=== PATIENT | male | born 1935 | race Caucasian/White ===

== ENCOUNTER 2016-05-13 21:01 | Observation (INO) | payer OTHER, MEDICARE ==
--- NOTE | 2016-05-13 21:39 | PDOC ---
History of Present Illness - General History Source: Patient Exam Limitations: No Limitations <Randy Cueva - Last Filed: 05/13/16 21:45> - General History Source: Patient Exam Limitations: No Limitations <Rachel Flores I - Last Filed: 05/13/16 23:44> - General Chief Complaint: Chest Pain Stated Complaint: CHEST PAIN Time Seen by Provider: 05/13/16 21:09 - History of Present Illness Initial Comments: 05/13/16 21:45 The patient is a 80 year old male, with a significant past medical history of, HTN, and fib who presents to the emergency department with intermittent chest pain started after dinner today. He describes the pain as a pressure sensation at his mid epigastric area. He reports experiencing this symptoms before and that this is an ongoing consistent problem. He arrives with no active chest pain /pressure. He reports taking Aspirin today with alleviation of his chest pain. He denies any arm or neck pain. He denies any recent injury or trauma. He reports having an Echo stress test about a month. He denies shortness of breath. He denies fever, chills, headache and dizziness. He denies nausea, vomit, abdominal pain, diarrhea and constipation. He denies dysuria, frequency, urgency and hematuria. PAST SURGICAL HISTORY: No significant history. FAMILY HISTORY: No pertinent history. SOCIAL HISTORY: Patient lives with family and is employed. MEDICATIONS: Reviewed. ALLERGIES: As per nursing notes. ROS General: No fevers or chills, no weakness, no weight loss HEENT: No change in vision. No sore throat,. No ear pain CardioVascular: Yes chest pain No shortness of breath Respiratory:No cough, or wheezing. Gastrointestinal: No nausea, vomiting, diarrhea or constipation. No rectal bleeding Genitourinary: No dysuria, hematuria, or frequency Musculoskeletal: No joint or muscle pain or swelling Neurologic: No headache, vertigo, dizziness or loss of consciousness Psychiatric: No depression Skin: No rashes or easy bruising Endocrine: no increased thirst or abnormal weight change Allergic: no skin or latex allergy All other systems reviewed and normal Exam: General: Well-nourished well-developed individual, no acute distress HEENT: Throat: Normal, tonsils normal, no erythema or exudate Neck: Supple, no meningeal signs, no lymphadenopathy Eyes: Pupils equal reactive and round, extraocular motion intact Chest: Nontender to palpation Cardiac: S1-S2 normal, regular rate and rhythm, no murmurs rubs or gallops Respiratory: Lungs clear to auscultation bilateral Abdomen: Soft, nondistended, normal bowel sounds, mild epigastric tenderness. Extremities: Warm, dry, no cyanosis, clubbing, or edema Skin: No rashes Neuro: Alert and oriented x3, nonfocal exam, grossly intact, normal gait Psych: Normal mood and affect (Randy Cueva) 05/13/16 22:38 A portion of this note was documented by scribe services under my direction. I have reviewed the details of the note, within reason, and agree with the documentation. The case summary and management plan written by me. Assessment and plan: This is an 80-year-old male with several cardiac risk factors and the history of known coronary artery disease who comes in complaining of substernal chest pain. Patient's fairly vague as to the nature of the pain and in discussion with the patient it appears that he has been having intermittent now for days if not longer. Patient said he thinks he recently had a cardiac stress echo test but it is unclear as to whether was just a echo or a stress echo. Patient does take an aspirin a day and did take his aspirin today when he had the pain and the pain did resolve with the aspirate. Patient's EKG is not normal at does have some nonspecific changes in comparison with a prior cardiogram there is no significant change. Cardiogram is from June 2014 Patient's heart score is 5 Patient will be admitted to a telemetry bed to rule him out and possibly get a stress test if he has not had one recently. (Rachel Flores I) Past History <Randy Cueva - Last Filed: 05/13/16 21:45> - Past Medical History Anemia: No Asthma: No Cancer: No Cardiac Disorders: Yes (A-FIB) CVA: No COPD: No CHF: No Dementia: No Diabetes: No GI Disorders: Yes (HIATAL HERNIA) Disorders: No HTN: Yes Hypercholesterolemia: No Kidney Stones: Yes Liver Disease: No Seizures: No Thyroid Disease: No - Surgical History Abdominal Surgery: No Appendectomy: No Cardiac Surgery: No Cholecystectomy: No Lung Surgery: No Neurologic Surgery: No Orthopedic Surgery: No - Psycho/Social/Smoking Cessation Hx Anxiety: No Suicidal Ideation: No Smoking History: Former smoker Have you smoked in the past 12 months: No If you are a former smoker, when did you quit?: 1979 Information on smoking cessation initiated: No Hx Alcohol Use: No Drug/Substance Use Hx: No Substance Use Type: None Hx Substance Use Treatment: No <Rachel Flores I - Last Filed: 05/13/16 23:44> - Past Medical History Allergies/Adverse Reactions: Allergies Allergy/AdvReac Type Severity Reaction Status Date / Time shellfish derived Allergy Unknown Verified 05/13/16 21:28 Home Medications: Ambulatory Orders Aspirin [ASA -] 81 mg PO DAILY 10/02/13 Amlodipine Besylate/Benazepril [Lotrel 5-10 mg Capsule] 1 each PO DAILY Sennosides [Senna Lax] 8.6 mg PO DAILY 06/23/14 Cardiac Specific PMH - Complaint Specific PMHX Pacemaker: No <Rachel Flores I - Last Filed: 05/13/16 23:44> - Vital Signs Last Vital Signs Temp Pulse Resp BP Pulse Ox 97.7 F 65 16 144/84 99 05/13/16 21:02 05/13/16 21:02 05/13/16 21:02 05/13/16 21:02 05/13/16 21:02 Heart Score/ECG Review - History History: Slightly suspicious - Electrocardiogram EKG: Non specific repolarization disturbance - Age Age: >/= 65 - Risk Factors Risk Factors Heart Score: Yes Hx Hypercholesterolemia, Yes Hx Hypertension, Yes Hx Obesity Based on the list above the patient has:: >/=3 risk factors or Hx atherosclerotic disease - Troponin Troponin: </= normal limit - Score Heart Score - Total: 5 <Rachel Flores I - Last Filed: 05/13/16 23:44> ED Treatment Course - LABORATORY CBC & Chemistry Diagram: 05/13/16 21:45 05/13/16 21:45 <Rachel Flores I - Last Filed: 05/13/16 23:44> - ADDITIONAL ORDERS Additional order review: Laboratory Results 05/13/16 05/13/16 21:45 21:45 Sodium 134 L Potassium 4.1 Chloride 101 Carbon Dioxide 26 Anion Gap 7 L BUN 14 Creatinine 0.9 Creat Clearance w eGFR > 60 Random Glucose 107 H D Calcium 8.6 Total Bilirubin 0.2 D AST 23 D ALT 21 Alkaline Phosphatase 40 Creatine Kinase 110 Troponin I < 0.03 L Total Protein 6.6 Albumin 4.0 05/13/16 21:45 RBC 4.55 MCV 98.4 H MCHC 32.8 RDW 12.8 MPV 8.9 Neutrophils % 54.3 D Lymphocytes % 30.6 D Monocytes % 12.2 H Eosinophils % 2.4 Basophils % 0.5 - RADIOLOGY Radiology Studies Ordered: Category Date Time Status CHEST X-RAY PORTABLE* [RAD] Stat Radiology 05/13/16 21:50 Completed *DC/Admit/Observation/Transfer <Randy Cueva - Last Filed: 05/13/16 21:45> - Discharge Dispostion Admit: Yes <Rachel Flores I - Last Filed: 05/13/16 23:44> Diagnosis at time of Disposition: Chest pain Qualifiers: Chest pain type: precordial chest pain Qualified Code(s): R07.2 - Precordial pain - Discharge Dispostion Condition at time of disposition: Good Decision to Admit order Date/Time: Decision to Admit Order Category Date Time Status Decision to Admit to Hospital Routine Phy Order 05/13/16 22:41 Ordered - Referrals Referrals: Zoran Viramontes MD [Primary Care Provider] - - Attestations Scribe Attestion: 05/13/16 21:43 Documentation prepared by Randy Cueva, acting as director medical for Rachel Flores MD. (Randy Cueva)
[2016-05-13 21:43] VITALS: BMI 31.3
[2016-05-13 22:13] LABS: BASOPHIL 0.5 % (0-2.0); EOSINOPHIL 2.4 % (0-4.5); MCH 32.3 pg (25.7-33.7); MCHC 32.8 g/dl (32.0-35.9); MEAN CELL VOLUME 98.4 fl (80-96); MEAN PLT VOLUME 8.9 fl (7.5-11.1); NEUTROPHILS 54.3 % (42.8-82.8); PLATELET COUNT 242 K/MM3 (134-434); RDW 12.8 % (11.9-15.9); WHITE BLOOD COUNT 6.8 K/mm3 (4.0-10.0)
[2016-05-13 22:26] LABS: ALK PHOS 40 U/L (32-92); ANION GAP 7 (8-16); CALCIUM 8.6 mg/dl (8.4-10.2); CO2 26 mmol/L (22-28); CREATININE 0.9 mg/dl (0.6-1.3); GLUCOSE,RANDOM 107 mg/dl (74-106); SGOT/AST 23 U/L (10-42); SGPT/ALT 21 U/L (10-40); TOT PROT 6.6 g/dl (6.4-8.3)
[2016-05-13 22:27] LABS: CPK(DFH) 110 IU/L (38-174)
[2016-05-13 22:43] LABS: BILIRUBIN,TOTAL 0.2 mg/dl (0.2-1.0)
[2016-05-13 22:47] LABS: TROPONIN I (DFP) < 0.03 ng/ml (0.03-0.50)
[2016-05-13] MEDS ORDERED: ASPIRIN 81 MG CHEWABLE TABLETS PO ONE (23:40)
[2016-05-13] MEDS ORDERED: ASPIRIN 81 MG CHEWABLE TABLETS ONE (23:48)
--- NOTE | 2016-05-13 23:56 | HP ---
CHIEF COMPLAINT: Chest Pain PCP: Dr. Viramontes HISTORY OF PRESENT ILLNESS: This is a 80 year old man with a past medical history of Hypertension, Paroxysmal Afib (no AC), CAD, BPH. Who presents to the emergency department with burning midsternal chest pain x pm. Patient reports the pain as radiating across his chest. Patient denies SOB, diaphoresis, nausea or vomiting. Patient reports seeing his limb driver regularly, having an Echo last April - . Patient denies SOB, diaphoresis, palpitations. Patient denies fever, chills, cough, N?V/S, constipation, dysuria. Patient denies sick contacts or recent travel. ER course was notable for: (1) Cardiac Enzymes neg x1 (2) EKG-Sinus Rhythm with SA, 1st degree AV block, Inferior Infarct, age undetermined (3) Chest Xray- Recent Travel: None PAST MEDICAL HISTORY: See HPI PAST SURGICAL HISTORY: Hernia Repair Arthroscopic Joint Renal Stent (2012) Social History: Smoking: Former 2PPD x26 yrs , quit 1979 Alcohol: Occasional, wine Drugs: None Family History: Mother age 85, AAA Father age 93, natural cause Allergies shellfish derived Allergy (Unknown, Verified 05/13/16 21:28) HOME MEDICATIONS: Medication Instructions Recorded Aspirin [ASA -] 81 mg PO DAILY 10/02/13 Amlodipine Besylate/Benazepril 1 each PO DAILY 06/23/14 [Lotrel 5-10 mg Capsule] Sennosides [Senna Lax] 8.6 mg PO DAILY 06/23/14 REVIEW OF SYSTEMS CONSTITUTIONAL: Absent: fever, chills, diaphoresis, generalized weakness, malaise, loss of appetite, weight change HEENT: Absent: rhinorrhea, nasal congestion, throat pain, throat swelling, difficulty swallowing, mouth swelling, ear pain, eye pain, visual changes CARDIOVASCULAR: chest pain Absent: syncope, palpitations, irregular heart rate, lightheadedness, peripheral edema RESPIRATORY: Absent: cough, shortness of breath, dyspnea with exertion, orthopnea, wheezing, stridor, hemoptysis GASTROINTESTINAL: constipation Absent: abdominal pain, abdominal distension, nausea, vomiting, diarrhea, melena , hematochezia GENITOURINARY: Absent: dysuria, frequency, urgency, hesitancy, hematuria, flank pain, genital pain MUSCULOSKELETAL: Absent: myalgia, arthralgia, joint swelling, back pain, neck pain SKIN: Absent: rash, itching, pallor HEMATOLOGIC/IMMUNOLOGIC: Absent: easy bleeding, easy bruising, lymphadenopathy, frequent infections ENDOCRINE: Absent: unexplained weight gain, unexplained weight loss, heat intolerance, cold intolerance NEUROLOGIC: Absent: headache, focal weakness or paresthesias, dizziness, unsteady gait, seizure, mental status changes, bladder or bowel incontinence PSYCHIATRIC: Absent: anxiety, depression, suicidal or homicidal ideation, hallucinations. PHYSICAL EXAMINATION Vital Signs - 24 hr 05/13/16 21:02 Temperature 97.7 F Pulse Rate 65 Respiratory 16 Rate Blood Pressure 144/84 O2 Sat by Pulse 99 Oximetry (%) GENERAL: Awake, alert, and fully oriented, in no acute distress. HEAD: Normal with no signs of trauma. EYES: Pupils equal, round and reactive to light, extraocular movements intact, sclera anicteric, conjunctiva clear. No lid lag. EARS, NOSE, THROAT: Ears normal, nares patent, oropharynx clear without exudates. Moist mucous membranes. NECK: Normal range of motion, supple without lymphadenopathy, JVD, or masses. LUNGS: Breath sounds equal, clear to auscultation bilaterally. No wheezes, and no crackles. No accessory muscle use. HEART: Regular rate and rhythm, normal S1 and S2 without murmur, rub or gallop. ABDOMEN: Soft, nontender, not distended, normoactive bowel sounds, no guarding, no rebound, no masses. No hepatomegaly or splenomegaly. MUSCULOSKELETAL: Normal range of motion at all joints. No bony deformities or tenderness. No CVA tenderness. UPPER EXTREMITIES: 2+ pulses, warm, well-perfused. No cyanosis. No clubbing. Cap refill <2 seconds. No peripheral edema. LOWER EXTREMITIES: 2+ pulses, warm, well-perfused. No calf tenderness. No peripheral edema. NEUROLOGICAL: Cranial nerves II-XII intact. Normal speech. Gait not observed. PSYCHIATRIC: Cooperative. Good eye contact. Appropriate mood and affect. SKIN: Warm, dry, normal turgor, no rashes or lesions noted. Laboratory Results - last 24 hr 05/13/16 05/13/16 05/13/16 21:45 21:45 21:45 WBC 6.8 RBC 4.55 Hgb 14.7 Hct 44.8 MCV 98.4 H MCHC 32.8 RDW 12.8 Plt Count 242 MPV 8.9 Neutrophils % 54.3 D Lymphocytes % 30.6 D Monocytes % 12.2 H Eosinophils % 2.4 Basophils % 0.5 Sodium 134 L Potassium 4.1 Chloride 101 Carbon Dioxide 26 Anion Gap 7 L BUN 14 Creatinine 0.9 Creat Clearance w eGFR > 60 Random Glucose 107 H D Calcium 8.6 Total Bilirubin 0.2 D AST 23 D ALT 21 Alkaline Phosphatase 40 Creatine Kinase 110 Troponin I < 0.03 L Total Protein 6.6 Albumin 4.0 ASSESSMENT/PLAN: This is a 80 year old male with a PMHX of: HTN, Paroxysmal Afib (no AC), CAD, GERD, BPH. Who presents to the ED with burning chest pain x pm. Placed on Tele Observation for Chest Pain r/o ACS for further evaluation of their emergent condition. Plan: 1. Chest Pain r/o ACS - Likely secondary to acid reflux - Telemetry monitoring - HEART Score 5 - Appreciate Cardiology Consult - CE neg x1 - Will trend CE x2 - EKG- SR with SA, 1st Degree AV block. Inferior infarct age undetermined, no change compared to prior study - Patient reports having Echo last April, will need to obtain study for review - Asa given in ED - Asa daily - Lipid panel in am - Maalox prn 2. CAD - See above 3. HTN - Monitor BP - Continue home med 4. Paroxysmal Afib - Controlled - No on AC secondary to urological bleeding in the past, per record 5. GERD - PPI 6. Low TSH - Free T3, T4 in am - Monitor and treat accordingly 7. BPH - Patient reports no current complaints - Continue to monitor, treat accordingly 8. F/E/N - PO Fluids - Replete lytes prn - Low Na Diet 9. DVT/PPI Prophylaxis - OOB - SCDs - Will start AC if LOS > 48 hrs, close monitoring 2/2 urological bleed hx Code Status: Patient is a Full Code Problem List - Problem (1) Burning chest pain Code(s): R07.89 - OTHER CHEST PAIN (2) GERD (gastroesophageal reflux disease) Code(s): K21.9 - GASTRO-ESOPHAGEAL REFLUX DISEASE WITHOUT ESOPHAGITIS (3) CAD (coronary artery disease) Code(s): I25.10 - ATHSCL HEART DISEASE OF [place] CORONARY ARTERY W/O ANG PCTRS (4) Paroxysmal atrial fibrillation Code(s): I48.0 - PAROXYSMAL ATRIAL FIBRILLATION (5) Low TSH level Code(s): R94.6 - ABNORMAL RESULTS OF THYROID FUNCTION STUDIES (6) Venous (peripheral) insufficiency Code(s): I87.2 - VENOUS INSUFFICIENCY (CHRONIC) (PERIPHERAL) (7) BPH (benign prostatic hyperplasia) Code(s): N40.0 - BENIGN PROSTATIC HYPERPLASIA WITHOUT LOWER URINRY TRACT SYMP (8) HTN (hypertension) Code(s): I10 - ESSENTIAL (PRIMARY) HYPERTENSION (9) DVT prophylaxis Code(s): INC5317 - Visit type - Emergency Visit Emergency Visit: Yes ED Registration Date: 05/13/16 Care time: The patient presented to the Emergency Department on the above date and was hospitalized for further evaluation of their emergent condition. - New Patient This patient is new to me today: Yes Date on this admission: 05/13/16 - Critical Care Critical Care patient: No
[2016-05-14 01:12] LABS: THYROID STIMULATING HORMONE 0.18 uIU/ml (0.358-3.74)
[2016-05-14 02:48] LABS: TROPONIN I < 0.02 ng/ml (0.00-0.05)
[2016-05-14] MEDS ORDERED: SODIUM CHLORIDE 250 ML IV STA (06:32)
[2016-05-14 09:03] LABS: BASOPHIL 0.5 % (0-2.0); EOSINOPHIL 3.3 % (0-4.5); MCH 32.7 pg (25.7-33.7); MCHC 33.4 g/dl (32.0-35.9); MEAN PLT VOLUME 9.3 fl (7.5-11.1); NEUTROPHILS 41.5 % (42.8-82.8); PLATELET COUNT 215 K/MM3 (134-434); RDW 13.1 % (11.9-15.9); WHITE BLOOD COUNT 5.1 K/mm3 (4.0-10.0)
[2016-05-14 09:32] LABS: CALCIUM 8.6 mg/dl (8.4-10.2); CREATININE 0.9 mg/dl (0.6-1.3); MAGNESIUM 2.2 mg/dL (1.8-2.4); PHOSPHOROUS 3.2 mg/dl (2.5-4.6)
[2016-05-14 09:37] LABS: CHOLESTEROL 136 mg/dl
[2016-05-14 09:43] LABS: TROPONIN I (DFP) < 0.03 ng/ml (0.03-0.50)
[2016-05-14 09:46] LABS: URINE APPEARANCE Clear; URINE BILIRUBIN Negative (NEGATIVE); URINE BLOOD Negative (NEGATIVE); URINE GLUCOSE (UA) Negative (NEGATIVE); URINE KETONE Negative (NEGATIVE); URINE LEUK ESTERASE Trace (NEGATIVE); URINE NITRITE Negative (NEGATIVE); URINE PROTEIN Negative (NEGATIVE); URINE UROBILINOGEN 1.0 E.U/dl (0.2-1.0)
[2016-05-14 09:49] LABS: URINE COLOR YELLOW
[2016-05-14] MEDS ORDERED: PANTOPRAZOLE 40 MG TABLET (FP) PO SCH (10:00)
[2016-05-14 10:09] LABS: CPK(DFH) 79 IU/L (38-174)
--- NOTE | 2016-05-14 11:39 | EKG ---
Test Reason : Blood Pressure : / mmHG Vent. Rate : 064 BPM Atrial Rate : 064 BPM P-R Int : 214 ms QRS Dur : 112 ms QT Int : 420 ms P-R-T Axes : 049 020 076 degrees QTc Int : 433 ms SINUS RHYTHM WITH SINUS ARRHYTHMIA WITH 1ST DEGREE A-V BLOCK INFERIOR INFARCT , AGE UNDETERMINED ABNORMAL ECG NO PREVIOUS ECGS AVAILABLE Confirmed by ESTHER ESTEVEZ MD ([id number]) on 05/14/2016 11:39:15 AM Referred By: Scott CLIFTON Confirmed By:ESTHER ESTEVEZ MD
[2016-05-14] MEDS ORDERED: AMIODARONE HCL 200 MG TABLET (FP) PO SCH (11:45)
--- NOTE | 2016-05-14 13:08 | DS ---
Physical Exam: SUBJECTIVE: Patient seen and examined OBJECTIVE: Vital Signs Period Temp Pulse Resp BP Sys/Gi[place]ano Pulse Ox Last 24 Hr 97.8 F-98.4 F 52-58 18-18 94-150/42-76 96-97 PHYSICAL EXAM GENERAL: The patient is awake, alert, and fully oriented, in no acute distress. HEAD: Normal with no signs of trauma. EYES: PERRL, extraocular movements intact, sclera anicteric, conjunctiva clear. ENT: Ears normal, nares patent, oropharynx clear without exudates, moist mucous membranes. NECK: Trachea midline, full range of motion, supple. LUNGS: Breath sounds equal, clear to auscultation bilaterally, no wheezes, no crackles, no accessory muscle use. HEART: Regular rate and rhythm, S1, S2 without murmur, rub or gallop. ABDOMEN: Soft, nontender, nondistended, normoactive bowel sounds, no guarding, no rebound, no hepatosplenomegaly, no masses. EXTREMITIES: 2+ pulses, warm, well-perfused, no edema. NEUROLOGICAL: Cranial nerves II through XII grossly intact. Normal speech, gait not observed. PSYCH: Normal mood, normal affect. SKIN: Warm, dry, normal turgor, no rashes or lesions noted. LABS Laboratory Results - last 24 hr 05/14/16 05/14/16 05/14/16 02:00 02:00 07:00 WBC 5.1 RBC 4.24 Hgb 13.9 Hct 41.5 MCV 98.0 H MCHC 33.4 RDW 13.1 Plt Count 215 MPV 9.3 Neutrophils % 41.5 L D Lymphocytes % 40.7 H D Monocytes % 14.0 H Eosinophils % 3.3 Basophils % 0.5 Sodium Potassium Chloride Carbon Dioxide Anion Gap BUN Creatinine Random Glucose Calcium Phosphorus Magnesium Creatine Kinase Cancelled 118 Troponin I Cancelled < 0.02 Triglycerides Cholesterol Total LDL Cholesterol HDL Cholesterol Free T4 Urine Color Urine Appearance Urine pH Ur Specific [place] Urine Protein Urine Glucose (UA) Urine Ketones Urine Blood Urine Nitrite Urine Bilirubin Urine Urobilinogen Ur Leukocyte Esterase 05/14/16 05/14/16 05/14/16 07:00 07:00 07:00 WBC RBC Hgb Hct MCV MCHC RDW Plt Count MPV Neutrophils % Lymphocytes % Monocytes % Eosinophils % Basophils % Sodium 139 Potassium 4.2 Chloride 104 Carbon Dioxide 28 Anion Gap 7 L BUN 16 Creatinine 0.9 Random Glucose 92 Calcium 8.6 Phosphorus 3.2 Magnesium 2.2 D Creatine Kinase 79 Troponin I < 0.03 L Triglycerides 43 Cholesterol 136 Total LDL Cholesterol 89 HDL Cholesterol 38 Free T4 Urine Color Urine Appearance Urine pH Ur Specific [place] Urine Protein Urine Glucose (UA) Urine Ketones Urine Blood Urine Nitrite Urine Bilirubin Urine Urobilinogen Ur Leukocyte Esterase 05/14/16 05/14/16 07:00 09:20 WBC RBC Hgb Hct MCV MCHC RDW Plt Count MPV Neutrophils % Lymphocytes % Monocytes % Eosinophils % Basophils % Sodium Potassium Chloride Carbon Dioxide Anion Gap BUN Creatinine Random Glucose Calcium Phosphorus Magnesium Creatine Kinase Troponin I Triglycerides Cholesterol Total LDL Cholesterol HDL Cholesterol Free T4 1.50 H Urine Color Yellow Urine Appearance Clear Urine pH 8.0 Ur Specific [place] 1.020 Urine Protein Negative Urine Glucose (UA) Negative Urine Ketones Negative Urine Blood Negative Urine Nitrite Negative Urine Bilirubin Negative Urine Urobilinogen 1.0 e.u/dl Ur Leukocyte Esterase Trace HOSPITAL COURSE: Date of Admission:05/13/16 Date of Discharge: 05/14/16 Minutes to complete discharge: 45 Discharge Summary Reason For Visit: CHEST PAIN Current Active Problems BPH (benign prostatic hyperplasia) (Acute) CAD (coronary artery disease) (Acute) Chest pain (Acute) DVT prophylaxis (Acute) HTN (hypertension) (Acute) Low TSH level (Acute) Paroxysmal atrial fibrillation (Acute) Condition: Good - Instructions Referrals: Zoran Viramontes MD [Primary Care Provider] - - Home Medications Comprehensive Discharge Medication List: Ambulatory Orders Aspirin [ASA -] 81 mg PO DAILY 10/02/13 Amlodipine Besylate/Benazepril [Lotrel 5-10 mg Capsule] 1 each PO DAILY Sennosides [Senna Lax] 8.6 mg PO DAILY 06/23/14
--- NOTE | 2016-05-14 13:31 | CONSULT ---
Consult - text type - Consultation Consultation Note: Cardiology Asked to see pt for CP -. full note dictated 80 yo male iwth hx HTN, afib -. amiodarone, AAA, normal EF in 02/14 , HH with episodes iof chest /epigastric burning at times, here with one of his episodes. He denies accompanying symptoms except that he got scared. EKG w/o changes Symptoms went away with anti-acid He ruled out for an RI Rec: D/c yash on current regimen Follow-up wit Dr Conroy within a month Thanks! D/W Rachael Hood
[2016-05-14 14:08] VITALS: BP 128/66; PULSE 61; TEMP 98.1
--- NOTE | 2016-05-18 11:46 | CONS ---
DATE OF CONSULTATION: DATE OF DICTATION: 05/14/2016 REQUESTING PHYSICIAN: Letty Hood N.P. REASON FOR CONSULTATION: Chest pain. HISTORY OF PRESENT ILLNESS: Patient is an 80-year-old male with a history of hypertension, paroxysmal atrial fibrillation, stable abdominal aortic aneurysm, hypothyroidism, gastroesophageal reflux disease, who presents here with chest/epigastric burning. The patient has no history of myocardial infarction or congestive heart failure, or chest pain syndrome. He had normal coronary angiograms in June of 2005, and normal nuclear stress test in May of 2013. He has normal left ventricular systolic function, a recent echo from January 2016. Patient says that at times he gets symptoms of chest/epigastric burning, ascribed to his gastroesophageal reflux disease/hiatal hernia. Last night, about an hour after eating a slice of pizza and peanut bar, he developed his well known symptoms of burning. He denies any associated symptoms, except that he got scared, hence his visit to the emergency room. Before he left he took some Mylanta, and the symptoms subsided very shortly after. He arrived to the emergency room. Currently he denies any symptoms. However, he admits to not really following sensible diet in terms of his GERD and admittedly has been eating a lot of chocolate lately. ALLERGIES: SHELLFISH. HOME MEDICATIONS: Amiodarone 200 daily, amlodipine/benazepril 5/10 daily, lexapro 10 daily, multivitamin daily, Zantac 300 daily. CURRENT MEDICATIONS: Amiodarone 200, pantoprazole 40. PAST MEDICAL HISTORY: As mentioned above, atrial fibrillation first diagnosed in November of 1996, with conversion to sinus rhythm with IV pronestyl. Recurrent atrial fibrillation in September of 1997, treated with sotalol. Again, recurrence in January 1999 with spontaneous cardioversion and institution of amiodarone. Holter in May 2011 showed sinus rhythm with no arrhythmia. Hypertension. Normal coronary angiogram in June 2005 and normal nuclear stress test in May 2013. Abdominal aortic aneurysm, with reported stability. Valvular heart disease with echo in January,, showed mild MR, mild left ventricular diastolic dysfunction, EF 68%. GERD/hiatal hernia. Obesity. Sinusitis. BPH Kidney stone with 13 procedures in the past. Hypothyroidism, hospitalization in March 2013 with TSH of 0.17. PAST SURGICAL HISTORY: Hernia repair. Knee arthroscopy. Kidney stone surgery. cataract extraction bilaterally with anterior vitrectomy. SOCIAL HISTORY: . Former smoker, initially 2 packs a day. Social alcohol use. FAMILY HISTORY: One child. REVIEW OF SYSTEMS: Constitutional: Overall denies any fevers, sweats, or chills. EYES: no new redness or photophobia. ENT: No hearing loss or epistaxis. Cardiac: As mentioned in HPI. Gastrointestinal: No nausea, vomiting. No abdominal pain, but epigastric burning as mentioned. Genitourinary: No dysuria, frequency or urgency, but reportedly has BPH and is under workup. Musculoskeletal: arthritic pain, mostly in the knees. Skin: No rashes or pruritus. Endocrine: No heat intolerance. No cold intolerance or excessive Hematology: No excessive bleeding or easy bruising. Psychiatric: Chronic depression. PHYSICAL EXAMINATION: Vital Signs: Blood pressure 90s to 110s over 40s to 60s with a pulse of the 50s , respiration of 18. Maximum temperature is 98.4, saturation 96 RA GENERAL: No acute distress. HEENT: Normocephalic, atraumatic. Neck: Shows no JVD, bruits Cardiovascular: Regular with S1, S2 without any appreciable murmurs, rubs, or gallops. Abdomen: Soft, distended, nontender, good bowel sounds. Extremities: No edema, warm b/l Electrocardiogram result, sinus rhythm with first degree AV block, nonspecific Q wave changes. Chest x-ray shows no acute disease. LABORATORY STUDIES: Revealed a WBC of 5.1, hemoglobin and hematocrit of 14 and 42 respectively, [id number], MCV 98 ,sodium 139, potassium 4.2, chloride 104, bicarbonate 28, BUN 16, creatinine 0.9, glucose 92, potassium 8.6, magnesium 2.2. CPK and troponin-I have been 110 and less than 0.03, 118 and less than 0.02, 79 and less than 0.02 respectively. TSH was low at 0.118 and free T4 and T3 are pending. LFTs normal. Urinalysis normal. ASSESSMENT: This is an 80-year-old male with the above history who presents here with chest/epigastric burning, a feeling well known to him, and ascribed to his gastroesophageal reflux disease. However, this time he got scared and came in. He denies any associated symptoms. There is no evidence of acute coronary syndrome. Negative cardiac enzymes and his EKG have not shown any acute changes. On telemetry, there has not been any acute event in terms of atrial fibrillation. There is no congestive heart failure. His symptoms are likely from his gastroesophageal reflux disease, and he does admit to dietary indiscretion. RECOMMENDATION: Patient may be discharged home from a cardiac perspective, with plan to follow up with Dr. Conroy within a month. He should continue on his current cardiac regimen. I had a long discussion with the patient regarding making better choices in terms of managing his GERD. Thank you for allowing me to participate in the care of this pleasant gentleman. CHICHO PEMBERTON M.D. [id number] MTDD
== END 2016-05-14 15:05 | disposition home or self-care (01) ==
LOC: FER 21:01 → FM/S 23:45
PROVIDERS: ADMIT Internal Medicine; ATTEND Nurse Practitioner Family
DX: K21.9 Gastro-esophageal reflux disease without esophagitis (principal); I10 Essential (primary) hypertension; Z87.891 Personal history of nicotine dependence; I48.0 Paroxysmal atrial fibrillation; I25.10 Atherosclerotic heart disease of native coronary artery without angina pectoris; N40.0 Benign prostatic hyperplasia without lower urinary tract symptoms; I87.2 Venous insufficiency (chronic) (peripheral); E03.9 Hypothyroidism, unspecified; E66.9 Obesity, unspecified; R07.9 Chest pain, unspecified; Z68.31 Body mass index [BMI] 31.0-31.9, adult
CPT/HCPCS: 36415; 71010-TC; 76775-TC; 80048; 80053; 80061; 81003; 82550; 83735; 84100; 84439; 84443; 84481; 84484; 85025; 87086; 87186; 93005; 99285-25; G0378

== ENCOUNTER 2017-03-21 08:17 | Day surgery (SDC) | payer OTHER, MEDICARE ==
[2017-03-21] MEDS ORDERED: PROPOFOL 20 ML ONE (08:19)
[2017-03-21 08:38] VITALS: BMI 31.9
[2017-03-21 14:21] VITALS: TEMP 97.6
[2017-03-21 15:30] VITALS: BP 122/66; PULSE 62
== END 2017-03-21 11:00 | disposition home or self-care (01) ==
LOC: FASU-ENDO 08:17
PROVIDERS: ATTEND Internal Medicine Gastroenterology
PROC: 0DJD8ZZ Inspection of Lower Intestinal Tract, Via Natural or Artificial Opening Endoscopic (ICD-10-PCS; principal; 2017-03-21 09:46)
DX: Z86.010 Personal history of colon polyps (principal); K57.30 Diverticulosis of large intestine without perforation or abscess without bleeding

== ENCOUNTER 2017-07-23 19:57 | Observation (INO) | payer OTHER, MEDICARE ==
--- NOTE | 2017-07-23 20:01 | PDOC ---
History of Present Illness - General Chief Complaint: Pain, Acute Stated Complaint: DISCOMFORT IN CHEST Time Seen by Provider: 07/23/17 20:00 Past History - Past Medical History Allergies/Adverse Reactions: Allergies Allergy/AdvReac Type Severity Reaction Status Date / Time shellfish derived Allergy Unknown Verified 07/23/17 19:59 Home Medications: Ambulatory Orders Aspirin [ASA -] 81 mg PO DAILY 10/02/13 Sennosides [Senna Lax] 8.6 mg PO DAILY 06/23/14 Anemia: No Asthma: No Cancer: Yes (PROSTATE CANCER 08/26) Cardiac Disorders: Yes (A-FIB) CVA: No COPD: No CHF: No Dementia: No Diabetes: No GI Disorders: Yes (HIATAL HERNIA) Disorders: No HTN: Yes Hypercholesterolemia: No Kidney Stones: Yes Liver Disease: No Seizures: No Thyroid Disease: No - Surgical History Abdominal Surgery: No Appendectomy: No Cardiac Surgery: No Cholecystectomy: No Lung Surgery: No Neurologic Surgery: No Orthopedic Surgery: No - Suicide/Smoking/Psychosocial Hx Smoking History: Former smoker Have you smoked in the past 12 months: No If you are a former smoker, when did you quit?: 1979 Hx Alcohol Use: No Drug/Substance Use Hx: No Substance Use Type: None Hx Substance Use Treatment: No *DC/Admit/Observation/Transfer - Discharge Dispostion Condition at time of disposition: Stable - Referrals Referrals: Zoran Viramontes MD [Primary Care Provider] - - Patient Instructions - Post Discharge Activity
--- NOTE | 2017-07-23 20:05 | PDOC ---
History of Present Illness - General History Source: Patient, Family Exam Limitations: No Limitations <Radha Hankins - Last Filed: 07/23/17 21:41> <Taisha Mcnamara - Last Filed: 07/24/17 06:11> - General Chief Complaint: Pain, Acute Stated Complaint: DISCOMFORT IN CHEST Time Seen by Provider: 07/23/17 20:00 - History of Present Illness Initial Comments: 07/23/17 20:38 The patient is a 82 year old male, with a significant past medical history of hypertension, AFib, Abdominal Aortic aneurysm, prostate cancer, kidney stones, spinal stenosis, and hiatal hernia, who presents to the emergency department with chest discomfort since earlier this evening at 18:00 s/p eating. Patient reports an intermittent burning discomfort midsternally, nonradiating in nature. He reports associated belching and epigastric discomfort, but denies nausea, vomiting, diarrhea, or constipation. Patient reports taking Zantac and Mylanta for his symptoms with minimal relief. He reports associated hot flashes and palpitations, but denies any shortness of breath, diaphoresis, or lower extremity edema. He reports urinary frequency at baseline, but denies any dysuria, hematuria, or changes in urination. He denies any recent fever, chills , cough, headache, or dizziness. He denies any recent travel or sick contacts. Allergies: NKDA Past Surgical History: None reported. Social History: Lives at home alone. Former smoker(Quit 1979). No ETOH or recreational drug use. PCP: Dr. Viramontes Photographer'S Model: Dr. Conroy (Radha Hankins) Past History <Radha Hankins - Last Filed: 07/23/17 21:41> - Past Medical History Anemia: No Asthma: No Cancer: Yes (PROSTATE CANCER 08/26) Cardiac Disorders: Yes (A-FIB) CVA: No COPD: No CHF: No Dementia: No Diabetes: No GI Disorders: Yes (HIATAL HERNIA) Disorders: No HTN: Yes Hypercholesterolemia: No Kidney Stones: Yes Liver Disease: No Seizures: No Thyroid Disease: No - Surgical History Abdominal Surgery: No Appendectomy: No Cardiac Surgery: No Cholecystectomy: No Lung Surgery: No Neurologic Surgery: No Orthopedic Surgery: No - Suicide/Smoking/Psychosocial Hx Smoking History: Former smoker Have you smoked in the past 12 months: No If you are a former smoker, when did you quit?: 1979 Hx Alcohol Use: No Drug/Substance Use Hx: No Substance Use Type: None Hx Substance Use Treatment: No <Taisha Mcnamara - Last Filed: 07/24/17 06:11> - Past Medical History Allergies/Adverse Reactions: Allergies Allergy/AdvReac Type Severity Reaction Status Date / Time shellfish derived Allergy Unknown Verified 07/23/17 19:59 Home Medications: Ambulatory Orders Aspirin [ASA -] 81 mg PO DAILY 10/02/13 Amlodipine Besylate/Benazepril [Lotrel 10-20 mg Capsule] 1 cap PO DAILY Escitalopram Oxalate [Lexapro -] 10 mg PO DAILY 07/23/17 Cardiac Specific PMH - Complaint Specific PMHX Pacemaker: No <Taisha Mcnamara - Last Filed: 07/24/17 06:11> Review of Systems - Review of Systems Able to Perform ROS?: Yes <Radha Hankins - Last Filed: 07/23/17 21:41> <Taisha Mcnamara - Last Filed: 07/24/17 06:11> - Review of Systems Comments:: 07/23/17 20:39 CONSTITUTIONAL: Absent: fever, no chills, no fatigue EYES: Absent: visual changes ENT: Absent: ear pain, no sore throat CARDIOVASCULAR: Present: midsternal chest discomfort, palpitations, hot flashes Absent: Diaphoresis RESPIRATORY: Absent: cough, no SOB GI: Present: epigastric abdominal pain, increased belching Absent: no nausea, no vomiting, no constipation, no diarrhea GENITOURINARY: Absent: dysuria, no frequency, no hematuria MUSKULOSKELETAL: Absent: back pain, no arthralgia, no myalgia SKIN: Absent: rash NEURO: Absent: headache (Radha Hankins) *Physical Exam <Radha Hankins - Last Filed: 07/23/17 21:41> <Taisha Mcnamara - Last Filed: 07/24/17 06:11> - Vital Signs Last Vital Signs Temp Pulse Resp BP Pulse Ox 97.8 F 57 L 20 135/76 98 07/24/17 05:55 07/24/17 05:55 07/24/17 05:55 07/24/17 05:55 07/23/17 23:22 - Physical Exam Comments: 07/23/17 20:39 GENERAL: The patient is awake, alert, and fully oriented, in no acute distress. HEAD: Normal with no signs of trauma. EYES: Pupils equal, round and reactive to light, extraocular movements intact, sclera anicteric, conjunctiva clear with no pallor. ENT: Ears normal, nares patent, oropharynx clear without exudates. Moist mucous membranes. NECK: Normal range of motion, supple without lymphadenopathy, JVD, or masses. LUNGS: Breath sounds equal, clear to auscultation bilaterally. No wheeze/ crackles. HEART: Irregularly irregular, no murmurs or rubs. ABDOMEN: Hyperactive bowel sounds. Mildly distended but soft/nontender. No guarding or rebound. No palpable masses. No hepatosplenomegaly. EXTREMITIES: Normal range of motion, no edema. No clubbing or cyanosis. No cords, erythema, or tenderness. NEUROLOGICAL: Cranial nerves II through XII grossly intact. Normal speech, normal gait. PSYCH: Normal mood, normal affect. SKIN: Warm, Dry, normal turgor, no rashes or lesions noted. (Radha Hankins) Heart Score/ECG Review - History History: Moderately suspicious - Electrocardiogram EKG: Normal - Age Age: >/= 65 - Risk Factors Risk Factors Heart Score: Yes Hx Hypertension, Yes Smoking History Based on the list above the patient has:: 1-2 risk factors - Troponin Troponin: </= normal limit - Score Heart Score - Total: 4 <Taisha Mcnamara - Last Filed: 07/24/17 06:11> ED Treatment Course - LABORATORY CBC & Chemistry Diagram: 07/23/17 20:15 07/23/17 20:15 <Radha Hankins - Last Filed: 07/23/17 21:41> - LABORATORY CBC & Chemistry Diagram: 07/23/17 20:15 07/23/17 20:15 <Taisha Mcnamara - Last Filed: 07/24/17 06:11> - ADDITIONAL ORDERS Additional order review: Laboratory Results 07/23/17 07/23/17 07/23/17 20:15 20:15 20:15 PT with INR 13.2 H INR 1.18 Sodium Potassium Chloride Carbon Dioxide Anion Gap BUN Creatinine Creat Clearance w eGFR Random Glucose Calcium Total Bilirubin AST ALT Alkaline Phosphatase Creatine Kinase Troponin I < 0.03 Total Protein Albumin Lipase 176 Urine Color Urine Appearance Urine pH Ur Specific [place] Urine Protein Urine Glucose (UA) Urine Ketones Urine Blood Urine Nitrite Urine Bilirubin Urine Urobilinogen Ur Leukocyte Esterase Urine RBC Urine WBC Ur Epithelial Cells 07/23/17 07/23/17 20:15 20:05 PT with INR INR Sodium 137 Potassium 3.9 Chloride 101 Carbon Dioxide 28 Anion Gap 8 BUN 19 H Creatinine 0.9 Creat Clearance w eGFR > 60 Random Glucose 111 H D Calcium 9.0 Total Bilirubin 0.5 D AST 17 D ALT 19 Alkaline Phosphatase 59 D Creatine Kinase 119 Troponin I Total Protein 7.5 Albumin 4.4 Lipase Urine Color Yellow Urine Appearance Clear Urine pH 6.5 Ur Specific [place] 1.015 Urine Protein Negative Urine Glucose (UA) Negative Urine Ketones Negative Urine Blood 2+ H Urine Nitrite Negative Urine Bilirubin Negative Urine Urobilinogen 1.0 Ur Leukocyte Esterase Negative Urine RBC 10-15 Urine WBC 3-5 Ur Epithelial Cells 0-1 07/23/17 20:15 RBC 4.52 MCV 99.4 H MCHC 33.8 RDW 12.6 MPV 8.4 Neutrophils % 70.7 D Lymphocytes % 18.2 D Monocytes % 9.6 Eosinophils % 1.0 Basophils % 0.5 - RADIOLOGY Radiology Studies Ordered: Category Date Time Status CHEST X-RAY PORTABLE* [RAD] Stat Radiology 07/23/17 21:21 Taken - Medications Given in the ED: ED Medications Discontinued Medications Generic Name Dose Route Start Last Admin Trade Name Freq PRN Reason Stop Dose Admin Pantoprazole Sodium 40 mg 07/23/17 20:35 07/23/17 20:42 Protonix Iv IVPB 07/23/17 20:36 40 mg ONCE ONE Administration Progress Note <Radha Hankins - Last Filed: 07/23/17 21:41> <Taisha Mcnamara - Last Filed: 07/24/17 06:11> - Progress Note Progress Note: Documentation has been prepared under my direction and personally reviewed by me in its entirety. I attest that this documented accurately reflects all work, treatment, procedures and medical decision making performed by me. (Taisha Mcnamara) Medical Decision Making <Radha Hankins - Last Filed: 07/23/17 21:41> <Taisha Mcnamara - Last Filed: 07/24/17 06:11> - Medical Decision Making 07/23/17 21:30 As noted above, this 82-year-old man with a history of HTN/A. fib/AAA presents with a few hour history of substernal/epigastric burning discomfort that occurred after eating high fat meal. No associated symptoms. Patient's last stress test was a few years ago. He has been taking his medications as prescribed. Exam as noted 12-lead electrocardiogram shows atrial fibrillation at 72 bpm; no acute ST or T- wave abnormalities. EKG tracing is essentially unchanged from previous tracing from May,. Laboratory evaluation notable for normal troponin. Mild pre-renal azotemia with BUN of 19 and creatinine 0.9. Urinalysis shows microscopic hematuria with rbc' s 10-15 per high-power field No significant abnormalities otherwise noted. Heart score is 4 pCXR: no infiltrate/effusion/masses Patient was admitted to [facility] Hospitalist service for observation/rule out OR /cardiology consultation (Taisha Mcnamara) *DC/Admit/Observation/Transfer <Radha Hankins - Last Filed: 07/23/17 21:41> - Discharge Dispostion Admit: Yes <Taisha Mcnamara - Last Filed: 07/24/17 06:11> Diagnosis at time of Disposition: Chest pain Qualifiers: Chest pain type: unspecified Qualified Code(s): R07.9 - Chest pain, unspecified - Discharge Dispostion Condition at time of disposition: Stable Decision to Admit order Date/Time: Decision to Admit Order Category Date Time Status Decision to Admit to Hospital Routine Admission 07/23/17 22:09 Active - Attestations Scribe Attestion: 07/23/17 20:40 Documentation prepared by Radha Hankins, acting as medical reimbursement specialist for Taisha Mcnamara MD. (Radha Hankins)
[2017-07-23 20:14] LABS: PH,URINE 6.5 (4.5-8); URINE APPEARANCE Clear; URINE BILIRUBIN Negative (NEGATIVE); URINE GLUCOSE (UA) Negative (NEGATIVE); URINE KETONE Negative (NEGATIVE); URINE LEUK ESTERASE Negative (NEGATIVE); URINE NITRITE Negative (NEGATIVE); URINE PROTEIN Negative (NEGATIVE)
[2017-07-23 20:16] LABS: URINE BLOOD 2+ (NEGATIVE); URINE COLOR YELLOW
[2017-07-23 20:31] LABS: BASO % 0.5 % (0-2.0); HEMOGLOBIN 15.2 GM/dl (11.7-16.9); LYMPH % 18.2 % (8-40); MCH 33.6 pg (25.7-33.7); MCHC 33.8 g/dl (32.0-35.9); MEAN CELL VOLUME 99.4 fl (80-96); MEAN PLT VOLUME 8.4 fl (7.5-11.1); MONO % 9.6 % (3.8-10.2); NEUT % 70.7 % (42.8-82.8); PLATELET COUNT 249 K/MM3 (134-434); RBC 4.52 M/mm3 (4.00-5.60); RDW 12.6 % (11.9-15.9); WHITE BLOOD COUNT 5.8 K/mm3 (4.0-10.8)
[2017-07-23] MEDS ORDERED: PANTOPRAZOLE SODIUM 40 MG VIAL IVPB ONE (20:35)
[2017-07-23] MEDS ORDERED: PANTOPRAZOLE SODIUM 40 MG VIAL ONE (20:36)
[2017-07-23 20:39] LABS: INR 1.18 (0.82-1.09); PROTHROMBIN TIME (PATIENT) 13.2 SEC (10.2-13.0)
[2017-07-23 20:39] LABS: EPI CELLS 0-1 /HPF
[2017-07-23 20:42] LABS: ALBUMIN 4.4 g/dl (3.5-5.0); ALK PHOS 59 U/L (32-92); ANION GAP 8 (8-16); BLOOD UREA NITROGEN 19 mg/dl (7-18); CHLORIDE 101 mmol/L (98-107); CO2 28 mmol/L (22-28); CREATININE 0.9 mg/dl (0.6-1.3); GLUCOSE,RANDOM 111 mg/dl (74-106); POTASSIUM 3.9 mmol/L (3.5-5.1); SGOT/AST 17 U/L (10-42); SGPT/ALT 19 U/L (10-40); SODIUM 137 mmol/L (136-145); TOT PROT 7.5 g/dl (6.4-8.3)
[2017-07-23 21:11] LABS: BILIRUBIN,TOTAL 0.5 mg/dl (0.2-1.0)
[2017-07-23] MEDS ORDERED: ONDANSETRON 4 MG TABLET PO PRN (22:27)
[2017-07-23] MEDS ORDERED: ACETAMINOPHEN 325 MG TABLET (FP) PO PRN (22:27)
[2017-07-23] MEDS ORDERED: MAG HYDROX/AL HYDROX/SIMETH 30 ML UNIT-DOSE CUP PO PRN (22:29)
--- NOTE | 2017-07-23 22:29 | HP ---
Admitting History and Physical - Admission Chief Complaint: chest burning History of Present Illness: 80 year old man with a past medical history of Hypertension, Paroxysmal Afib ( no AC), CAD, BPH, prostate cancer s/p XRT, Hernia Repair, Arthroscopic Joint , Renal Stent (2012) Who presents to the emergency department with burning midsternal chest pain. He reports onset around the time of eating a meal. he reports eating mozzarella, salami, and bread earlier in the day around 530PM. He states the discomfort lasted for several minutes and mostly in his upper chest bilaterally. He denies associated jaw pain, tingling, heart palps, nausea , vomiting, sweats, chills, syncope(true or near), sob.He reports using Mylanta in the past for similar symptoms w good effect. he reports having 2 normal BM today. Rest of ros neg except for HPI PMH/PSH:As per HPi Social hx: former smoker. Denies toxic habits Family History: Mother age 85, AAA Father age 93, natural cause Prob list Hypertension Paroxysmal Afib (no AC) CAD BPH Spinal stenosis a/p- 80 year old man with a past medical history of Hypertension, Paroxysmal Afib (no AC), CAD, BPH spinal stenosis placed in observation for ACS r/o. 1. chest pain r/o acs: Probable GERD/Gastritis per history. EKG (no CLARA/STD), 1st Trop, and CXR all negative. Given IV Protonix in ER. Given risk factors, placed in observation for cardiac enzymes, telemetry monitoring. Cardiology to follow in AM Dr. Conroy. 2. CAD: Cont ASA, B/P control 3. HTN: Cont Home meds 4. PAF: not on AC(?) Cont ASA, Amiodarone. AC per PCP/Cardiology. 5. GERD: Cont Zantac, add PPI. 6. H/O spinal stenosis: reports getting "injections" to lower back recently. Prn Tylenol 7. Micro hematuria: No LUTS. FU UA OPT dvt prophy scd, oob, expect less than 48hours stay Dispo: observation for ACS r/o History Source: Patient Limitations to Obtaining History: No Limitations - Past Medical History Cardiovascular: Yes: AFIB, CAD, HTN Gastrointestinal: Yes: GERD, Hiatal Hernia - Smoking History Smoking history: Former smoker Have you smoked in the past 12 months: No If you are a former smoker, when did you quit?: 1979 - Alcohol/Substance Use Hx Alcohol Use: No Home Medications - Allergies Allergies/Adverse Reactions: Allergies Allergy/AdvReac Type Severity Reaction Status Date / Time shellfish derived Allergy Unknown Verified 07/23/17 19:59 - Home Medications Home Medications: Ambulatory Orders Aspirin [ASA -] 81 mg PO DAILY 10/02/13 Amlodipine Besylate/Benazepril [Lotrel 10-20 mg Capsule] 1 cap PO DAILY Escitalopram Oxalate [Lexapro -] 10 mg PO DAILY 07/23/17 Acetaminophen [Tylenol .Regular Strength -] 650 mg PO Q4H PRN tablet 07/25/17 Pantoprazole Sodium [Protonix -] 20 mg PO DAILY #30 tablet.ec 07/25/17 Physical Examination Vital Signs: Vital Signs Temperature 97.7 F 07/23/17 20:03 Pulse Rate 85 07/23/17 22:24 Respiratory Rate 16 07/23/17 22:24 Blood Pressure 154/71 07/23/17 22:24 O2 Sat by Pulse Oximetry (%) 98 07/23/17 22:24 Constitutional: Yes: Well Nourished, No Distress, Calm. No: Anxious, Ashen, Cachectic, Diaphoresis, Mild Distress, Moderate Distress, Severe Distress, Obese , Pallor, Poor Hygeine, Thin, Other Eyes: Yes: WNL, Conjunctiva Clear, EOM Intact. No: Cataracts, Diplopia, Occular Prosthesis, PERRL, Ptosis, Sclera Icterus, Tearing, Other HENT: Yes: WNL, Atraumatic, Normocephalic. No: Drooling, Epistaxis, Hoarseness , Nasal Congestion, Pharyngeal Erythema, Rhinnorhea, Thrush, Tonsillar Exudate, Other Neck: Yes: WNL, Supple, Trachea Midline. No: Decreased ROM, Lymphadenopathy, Rigid, Tenderness, Thyromegaly, Other Cardiovascular: Yes: WNL, Pulse Irregular, S1, S2 Respiratory: Yes: WNL, Regular, CTA Bilaterally. No: Accessory Muscle Use, Bradypnea, Matthew-Alonzo, Cough, Diminished Gastrointestinal: Yes: WNL, Normal Bowel Sounds, Soft, Abdomen, Obese. No: Distention, Hematemesis, Hyperactive Bowel Sounds, Hypoactive Bowel Sounds, Palpable Mass, Pulsatile Mass ...Rectal Exam: Yes: Deferred Renal/: No: Bladder Distention, CVA Tenderness - Left Musculoskeletal: No: Joint Stiffness, Joint Swelling Extremities: No: Amputation, Calf Tenderness, Cold, Cool Edema: No Peripheral Pulses: Left Doralis Pedis: 1+, Right Dorsalis Pedis: 1+ Integumentary: Yes: WNL. No: Bruising, Erythema Neurological: Yes: WNL, Alert, Oriented, Cran Nerves II-XII Intact. No: Aphasia Psychiatric: Yes: WNL, Alert, Oriented. No: Agitated, Suicidal Ideation Labs: CBC, BMP 07/23/17 20:15 07/23/17 20:15 Visit type - Emergency Visit Emergency Visit: Yes ED Registration Date: 07/23/17 Care time: The patient presented to the Emergency Department on the above date and was hospitalized for further evaluation of their emergent condition. - New Patient This patient is new to me today: Yes Date on this admission: 07/25/17 - Critical Care Critical Care patient: No Hospitalist Screening - Colonoscopy Questionnaire Colonoscopy Questionnaire: Colonoscopy Questionnaire - Patient: 50 - 75 years old and never had a screening colonoscopy: No History of colon or rectal polyps, or CA: Unknown History of IBD, Crohn's disease or UC: Unknown History of abdominal radiation therapy as a child: Unknown - Relative: 1 with colon or rectal CA, or polyps at age 60 or younger: Unknown Colon or rectal CA diagnosed at age 45 or younger: Unknown Multiple relatives with colon or rectal CA: Unknown - Outcome: Screening Result: Negative Screen
[2017-07-23 22:47] VITALS: BMI 32.1
[2017-07-24 09:02] LABS: BASO % 0.3 % (0-2.0); EOS % 1.4 % (0-4.5); HEMATOCRIT 40.5 % (35.4-49); LYMPH % 18.2 % (8-40); MCH 34.4 pg (25.7-33.7); MCHC 34.5 g/dl (32.0-35.9); MEAN CELL VOLUME 99.8 fl (80-96); NEUT % 68.1 % (42.8-82.8); PLATELET COUNT 218 K/MM3 (134-434); RBC 4.06 M/mm3 (4.00-5.60); RDW 12.4 % (11.9-15.9); WHITE BLOOD COUNT 5.8 K/mm3 (4.0-10.8)
[2017-07-24] MEDS: AMIODARONE HCL 200 MG TABLET (FP) PO SCH (09:21)
[2017-07-24] MEDS: ESCITALOPRAM OXALATE 10 MG TABLET (FP) PO SCH (09:21)
[2017-07-24] MEDS: PANTOPRAZOLE 20 MG TABLET (FP) PO SCH (09:22)
[2017-07-24] MEDS: LISINOPRIL 20 MG TABLET (FP) PO SCH (09:22)
[2017-07-24] MEDS: ASPIRIN 81 MG CHEWABLE TABLETS PO SCH (09:22)
[2017-07-24] MEDS: amLODIPine BESYLATE 10 MG TABLET (FP) PO SCH (09:22)
[2017-07-24] MEDS ORDERED: PATIENT'S OWN MEDICATION (NON-FORMULARY) (Amlodipine Besylate/Benazepril [Lotrel 10-20 Mg PO SCH (10:00)
--- NOTE | 2017-07-24 11:07 | PN ---
Physical Exam: SUBJECTIVE: Patient seen and examined this AM. Sleeping on and off, no c/o this AM OBJECTIVE: Vital Signs Period Temp Pulse Resp BP Sys/Giordano Pulse Ox Last 24 Hr 97.5 F-97.8 F 57-85 16-20 135-155/66-86 97-100 GENERAL: The patient is awake, alert, and fully oriented, in no acute distress. HEAD: Normal with no signs of trauma. NECK: Trachea midline, full range of motion, supple. LUNGS: Breath sounds equal, clear to auscultation bilaterally, HEART: Regular rate and rhythm, S1, S2 without murmur, rub or gallop. ABDOMEN: Soft, nontender, nondistended, normoactive bowel sounds, no guarding, no rebound, no hepatosplenomegaly, no masses. EXTREMITIES: 2+ pulses, warm, well-perfused, no edema. NEUROLOGICAL: Cranial nerves II through XII grossly intact. Normal speech, gait not observed. PSYCH: Normal mood, normal affect. SKIN: Warm, dry, normal turgor, no rashes or lesions noted Laboratory Results - last 24 hr 07/23/17 07/23/17 07/23/17 20:05 20:15 20:15 WBC RBC Hgb Hct MCV MCH MCHC RDW Plt Count MPV Neutrophils % Lymphocytes % Monocytes % Eosinophils % Basophils % PT with INR INR Sodium 137 Potassium 3.9 Chloride 101 Carbon Dioxide 28 Anion Gap 8 BUN 19 H Creatinine 0.9 Creat Clearance w eGFR > 60 Random Glucose 111 H D Calcium 9.0 Total Bilirubin 0.5 D AST 17 D ALT 19 Alkaline Phosphatase 59 D Creatine Kinase 119 Troponin I < 0.03 Total Protein 7.5 Albumin 4.4 Lipase Urine Color Yellow Urine Appearance Clear Urine pH 6.5 Ur Specific [place] 1.015 Urine Protein Negative Urine Glucose (UA) Negative Urine Ketones Negative Urine Blood 2+ H Urine Nitrite Negative Urine Bilirubin Negative Urine Urobilinogen 1.0 Ur Leukocyte Esterase Negative Urine RBC 10-15 Urine WBC 3-5 Ur Epithelial Cells 0-1 07/23/17 07/23/17 07/23/17 20:15 20:15 20:15 WBC 5.8 RBC 4.52 Hgb 15.2 Hct 45.0 MCV 99.4 H MCH 33.6 MCHC 33.8 RDW 12.6 Plt Count 249 MPV 8.4 Neutrophils % 70.7 D Lymphocytes % 18.2 D Monocytes % 9.6 Eosinophils % 1.0 Basophils % 0.5 PT with INR 13.2 H INR 1.18 Sodium Potassium Chloride Carbon Dioxide Anion Gap BUN Creatinine Creat Clearance w eGFR Random Glucose Calcium Total Bilirubin AST ALT Alkaline Phosphatase Creatine Kinase Troponin I Total Protein Albumin Lipase 176 Urine Color Urine Appearance Urine pH Ur Specific [place] Urine Protein Urine Glucose (UA) Urine Ketones Urine Blood Urine Nitrite Urine Bilirubin Urine Urobilinogen Ur Leukocyte Esterase Urine RBC Urine WBC Ur Epithelial Cells 07/24/17 07/24/17 02:00 07:46 WBC 5.8 RBC 4.06 Hgb 14.0 Hct 40.5 MCV 99.8 H MCH 34.4 H MCHC 34.5 RDW 12.4 Plt Count 218 MPV 9.0 Neutrophils % 68.1 Lymphocytes % 18.2 Monocytes % 12.0 H Eosinophils % 1.4 Basophils % 0.3 PT with INR INR Sodium Potassium Chloride Carbon Dioxide Anion Gap BUN Creatinine Creat Clearance w eGFR Random Glucose Calcium Total Bilirubin AST ALT Alkaline Phosphatase Creatine Kinase Troponin I 0.04 D Total Protein Albumin Lipase Urine Color Urine Appearance Urine pH Ur Specific [place] Urine Protein Urine Glucose (UA) Urine Ketones Urine Blood Urine Nitrite Urine Bilirubin Urine Urobilinogen Ur Leukocyte Esterase Urine RBC Urine WBC Ur Epithelial Cells Active Medications Generic Name Dose Route Start Last Admin Trade Name Nickq PRN Reason Stop Dose Admin Acetaminophen 650 mg 07/23/17 22:27 Tylenol - PO Q4H PRN PAIN LEVEL 1 - 3 Al Hydroxide/Mg Hydroxide 30 ml 07/23/17 22:29 Mylanta Oral Suspension - PO Q6H PRN DYSPEPSIA Amiodarone HCl 200 mg 07/24/17 10:00 07/24/17 09:21 Cordarone - PO 200 mg DAILY BERNA Administration Amlodipine Besylate 10 mg 07/24/17 10:00 07/24/17 09:22 Norvasc - PO 10 mg DAILY BERNA Administration Aspirin 81 mg 07/24/17 10:00 07/24/17 09:22 Asa - PO 81 mg DAILY BERNA Administration Escitalopram Oxalate 10 mg 07/24/17 10:00 07/24/17 09:21 Lexapro - PO 10 mg DAILY BERNA Administration Lisinopril 20 mg 07/24/17 10:00 07/24/17 09:22 Prinivil PO 20 mg DAILY BERNA Administration Ondansetron HCl 8 mg 07/23/17 22:27 Zofran - PO Q8H PRN NAUSEA Pantoprazole Sodium 20 mg 07/24/17 10:00 07/24/17 09:22 Protonix - PO 20 mg DAILY BERNA Administration Ranitidine HCl 300 mg 07/24/17 22:00 Zantac - PO HS BERNA ASSESSMENT/PLAN: This 80 year old man with a past medical history of Hypertension, Paroxysmal Afib (no AC), CAD, BPH spinal stenosis placed in observation for c/o chest pain, epigastric vs cardiac rule out 1. Chest pain, epigastric vs cardiac work up: - Probable GERD/Gastritis per history and slightly resolved after mylanta. Timing occurred after meal. - EKG AF without ST elevation or deviations. - 1st and 2nd sets of cardiac enzymes negative, pending 3rd. - CXR negative. - Cardiology consult called to evaluate. - already on ASA for AF, no further anticoagulation for this pt. 2. HTN: - Cont Home meds, lisinopril, norvasc 3. PAF: - not on AC and calvin cont ASA - home dose of Amiodarone. 4. GERD: - Cont Zantac and protonix 5. FEN: -low sodium diet -SCD boots, ambulation Dispo: Pt requires an observation admission for a cardiac work up to rule out ACS Visit type - Emergency Visit Emergency Visit: Yes ED Registration Date: 07/23/17 Care time: The patient presented to the Emergency Department on the above date and was hospitalized for further evaluation of their emergent condition. - New Patient This patient is new to me today: Yes Date on this admission: 07/24/17 - Critical Care Critical Care patient: No - Discharge Referral Referred to [facility] Med P.C.: No
--- NOTE | 2017-07-24 15:05 | PN ---
Progress Note (short form) - Note Progress Note: Pt had an episode with reflux after eating earlier. He had a colonoscopy several months ago with Dr. White. His PCP retired and is meeting his new one on July 27. Cardiac enzymes negative x 3 Will consult his GI, Dr. White regarding his reflux and dyspepsia in light of his hx of hiatal hernia. Visit type - Emergency Visit Emergency Visit: Yes ED Registration Date: 07/23/17 Care time: The patient presented to the Emergency Department on the above date and was hospitalized for further evaluation of their emergent condition. - New Patient This patient is new to me today: Yes Date on this admission: 07/24/17 - Critical Care Critical Care patient: No - Discharge Referral Referred to [facility] Med P.C.: No
--- NOTE | 2017-07-24 16:26 | CON.CARD ---
Consult Consult Specialty:: Cardiology Reason for Consultation:: Chest pain - History of Present Illness History of Present Illness: This is an 80 year old male with a PMH of HTN, PAFIB (not on AC), CAD, and prostate Ca. He has a hiatal hernia and symptoms of GERD. He presented to the ED with burning mid sternal chest pain after eating a heavy meal. The pain was non-radiating and not associated with exertion. It lasted several minutes and had no associated symptoms. Troponin 0.03, 0.04, 0.03 EKG without acute changes Presently pain free and wants to go home. - Past Medical History Cardio/Vascular: Yes: AFIB, CAD, HTN Gastrointestinal: Yes: GERD, Hiatal Hernia - Alcohol/Substance Use Hx Alcohol Use: No - Smoking History Smoking history: Former smoker Have you smoked in the past 12 months: No If you are a former smoker, when did you quit?: 1979 Home Medications - Allergies Allergies/Adverse Reactions: Allergies Allergy/AdvReac Type Severity Reaction Status Date / Time shellfish derived Allergy Unknown Verified 07/23/17 19:59 - Home Medications Home Medications: Ambulatory Orders Aspirin [ASA -] 81 mg PO DAILY 10/02/13 Amlodipine Besylate/Benazepril [Lotrel 10-20 mg Capsule] 1 cap PO DAILY Escitalopram Oxalate [Lexapro -] 10 mg PO DAILY 07/23/17 Review of Systems Findings/Remarks: As per HPI Vital Signs: Vital Signs Temperature 98.2 F 07/24/17 14:14 Pulse Rate 63 07/24/17 14:14 Respiratory Rate 18 07/24/17 14:14 Blood Pressure 125/69 07/24/17 14:14 O2 Sat by Pulse Oximetry (%) 99 07/24/17 14:14 Constitutional: Yes: Well Nourished Eyes: Yes: WNL HENT: Yes: WNL Neck: Yes: WNL Respiratory: Yes: CTA Bilaterally Gastrointestinal: Yes: Soft Cardiovascular: Yes: Regular Rate and Rhythm (NL S1S2, no MRHG) JVD: No Carotid Bruit: No Edema: No Neurological: Yes: Alert, Oriented (Grossly nonfocal) - Other Data Labs, Other Data: CBC, BMP 07/24/17 07:46 07/23/17 20:15 INR, PTT INR 1.18 (0.82-1.09) 07/23/17 20:15 Troponin, BNP 07/23/17 07/24/17 07/24/17 20:15 02:00 06:30 Troponin I < 0.03 0.04 D < 0.03 Troponin, BNP 07/23/17 07/24/17 07/24/17 20:15 02:00 06:30 Troponin I < 0.03 0.04 D < 0.03 Assessment/Plan Chest pain Most likely Non - cardiac and is related to the hiatal hernia No further in patient cardiac evaluation is required He is followed as an outpatient by Dr. Conroy ([facility] - no longer comes to [facility]) Have him follow up with Dr. Conroy.
[2017-07-24] MEDS ORDERED: RANITIDINE HCL 150 MG TABLET (FP) PO SCH (22:00)
--- NOTE | 2017-07-24 22:00 | EKG ---
Test Reason : Blood Pressure : / mmHG Vent. Rate : 072 BPM Atrial Rate : 096 BPM P-R Int : 000 ms QRS Dur : 100 ms QT Int : 408 ms P-R-T Axes : 000 002 119 degrees QTc Int : 446 ms NORMAL SINUS RHYTHM WITH PREMATURE ATRIAL COMPLEXES POSSIBLE ANTERIOR INFARCT , AGE UNDETERMINED ABNORMAL ECG WHEN COMPARED WITH ECG OF 13-MAY-2016 21:09, COMPARED TO EKG NO SIGNIFICANT CHANGE IS FOUND Confirmed by KALEE REINOSO MD ([id number]) on 07/24/2017 9:59:58 PM Referred By: YEE Confirmed By:KALEE REINOSO MD
[2017-07-25 08:22] LABS: BASO % 0.3 % (0-2.0); EOS % 1.9 % (0-4.5); HEMATOCRIT 39.8 % (35.4-49); HEMOGLOBIN 14.1 GM/dl (11.7-16.9); LYMPH % 25.6 % (8-40); MCH 35.4 pg (25.7-33.7); MCHC 35.4 g/dl (32.0-35.9); MEAN CELL VOLUME 99.9 fl (80-96); MEAN PLT VOLUME 8.5 fl (7.5-11.1); MONO % 13.8 % (3.8-10.2); NEUT % 58.4 % (42.8-82.8); PLATELET COUNT 221 K/MM3 (134-434); RBC 3.98 M/mm3 (4.00-5.60); RDW 12.3 % (11.9-15.9); WHITE BLOOD COUNT 4.9 K/mm3 (4.0-10.8)
[2017-07-25 08:28] LABS: INR 1.2 (0.82-1.09); PROTHROMBIN TIME (PATIENT) 13.4 SEC (10.2-13.0)
[2017-07-25 08:34] LABS: ALBUMIN 3.5 g/dl (3.5-5.0); ALK PHOS 41 U/L (32-92); ANION GAP 6 (8-16); BILIRUBIN,TOTAL 0.7 mg/dl (0.2-1.0); BLOOD UREA NITROGEN 16 mg/dl (7-18); CALCIUM 8.5 mg/dl (8.4-10.2); CHLORIDE 104 mmol/L (98-107); CO2 28 mmol/L (22-28); CREATININE 0.7 mg/dl (0.6-1.3); GLUCOSE,RANDOM 86 mg/dl (74-106); POTASSIUM 3.8 mmol/L (3.5-5.1); SGOT/AST 13 U/L (10-42); SGPT/ALT 14 U/L (10-40); SODIUM 138 mmol/L (136-145); TOT PROT 6.1 g/dl (6.4-8.3)
[2017-07-25] MEDS: ESCITALOPRAM OXALATE 10 MG TABLET (FP) PO SCH (09:18)
[2017-07-25] MEDS: PANTOPRAZOLE 20 MG TABLET (FP) PO SCH (09:18)
[2017-07-25] MEDS: ASPIRIN 81 MG CHEWABLE TABLETS PO SCH (09:18)
[2017-07-25] MEDS: amLODIPine BESYLATE 10 MG TABLET (FP) PO SCH (09:18)
[2017-07-25] MEDS: AMIODARONE HCL 200 MG TABLET (FP) PO SCH (09:19)
[2017-07-25] MEDS: LISINOPRIL 20 MG TABLET (FP) PO SCH (09:19)
--- NOTE | 2017-07-25 12:11 | PN ---
Progress Note (short form) - Note Progress Note: Patient seen and consult dictated. Patient admitted with chest pain ?etiology. Cardiology evaluation suggests against the current discomfort being from cardiac source; may be from GI etiology ?GERD. Patient also with gallstones seen on prior CT scan - raises possibility that the chest pain was GB related/colic. Currently feels better on combination of PPI and Zantac qhs; tolerating PO without N/V. Labs with normal lipase and LFTs. Remains on PO ASA. Discussed with patient and niece; rec: continue PO as tolerated change GI meds to Pantoprazole 40mg PO daily (stop Zantac) discharge home if stable if symptoms persist, will arrange for outpatient EGD
--- NOTE | 2017-07-25 12:33 | DS ---
Physical Exam: SUBJECTIVE: Patient seen and examined, reports feeling well, denies any chest pain or shortness of breath. OBJECTIVE: 80 year old man with a past medical history of Hypertension, Paroxysmal Afib (no AC), CAD, BPH, prostate cancer s/p XRT, Hernia Repair, Arthroscopic Joint , Renal Stent (2012) Who presents to the emergency department with burning midsternal chest pain. He reports onset around the time of eating a meal. he reports eating mozzarella, salami, and bread earlier in the day around 530PM. He states the discomfort lasted for several minutes and mostly in his upper chest bilaterally. He denies associated jaw pain, tingling, heart palps, nausea, vomiting, sweats, chills, syncope(true or near), sob. He reports using Mylanta in the past for similar symptoms w good effect. he reports having 2 normal BM today. Vital Signs Period Temp Pulse Resp BP Sys/Giordano Pulse Ox Last 24 Hr 98.1 F-98.6 F 56-63 18-20 125-150/69-74 95-99 PHYSICAL EXAM GENERAL: The patient is awake, alert, and fully oriented, in no acute distress. HEAD: Normal with no signs of trauma. EYES: PERRL, extraocular movements intact, sclera anicteric, conjunctiva clear. ENT: Ears normal, nares patent, oropharynx clear without exudates, moist mucous membranes. NECK: Trachea midline, full range of motion, supple. LUNGS: Breath sounds equal, clear to auscultation bilaterally, no wheezes, no crackles, no accessory muscle use. HEART: Regular rate and rhythm, S1, S2 without murmur, rub or gallop. ABDOMEN: Soft, nontender, nondistended, normoactive bowel sounds, no guarding, no rebound, no hepatosplenomegaly, no masses. EXTREMITIES: 2+ pulses, warm, well-perfused, no edema. NEUROLOGICAL: Cranial nerves II through XII grossly intact. Normal speech, gait not observed. PSYCH: Normal mood, normal affect. SKIN: Warm, dry, normal turgor, no rashes or lesions noted. LABS Laboratory Results - last 24 hr 07/25/17 07/25/17 07/25/17 07:27 07:27 07:27 WBC 4.9 RBC 3.98 L Hgb 14.1 Hct 39.8 MCV 99.9 H MCH 35.4 H MCHC 35.4 RDW 12.3 Plt Count 221 MPV 8.5 Neutrophils % 58.4 Lymphocytes % 25.6 D Monocytes % 13.8 H Eosinophils % 1.9 Basophils % 0.3 PT with INR 13.4 H INR 1.20 Sodium 138 Potassium 3.8 Chloride 104 Carbon Dioxide 28 Anion Gap 6 L BUN 16 Creatinine 0.7 D Creat Clearance w eGFR > 60 Random Glucose 86 D Calcium 8.5 Total Bilirubin 0.7 D AST 13 D ALT 14 D Alkaline Phosphatase 41 D Creatine Kinase 41 Troponin I Total Protein 6.1 L Albumin 3.5 D 07/25/17 07:27 WBC RBC Hgb Hct MCV MCH MCHC RDW Plt Count MPV Neutrophils % Lymphocytes % Monocytes % Eosinophils % Basophils % PT with INR INR Sodium Potassium Chloride Carbon Dioxide Anion Gap BUN Creatinine Creat Clearance w eGFR Random Glucose Calcium Total Bilirubin AST ALT Alkaline Phosphatase Creatine Kinase Troponin I < 0.03 Total Protein Albumin Laboratory Tests 07/23/17 07/24/17 07/24/17 20:15 02:00 06:30 Troponin I < 0.03 0.04 D < 0.03 07/25/17 07:27 Troponin I < 0.03 IMAGING chest xray: no acute pathology ekg: nsr with pac's, possible anterior infarct HOSPITAL COURSE: Patient was admitted from the emergency department for chest pain r/oo acs. troponin x 3 wnl, ekg unchanged from prior. patient was evaluted by cardiology, Dr Mclain, recommended outpatient stress testing. symptoms resolved after starting mylanta and protonix. patient has a past medical history of paroxysmal afib, amiodarone was continued, he remained in nsr throughout admission. blood pressure remained at goal, lisinopril and norvasc was continued. chest discomfort secondary to GERD, continue ppi, patient was evaluated by GI, Dr White, recommended outpatient EGD. PLAN - strict follow up with pcp - f/u with director data processing, within 1 week for outpatient stress testing - f/u with GI within 2 weeks for outpatient EGD Date of Admission:07/23/17 Date of Discharge: 07/25/17 Minutes to complete discharge: 45 Discharge Summary Reason For Visit: DISCOMFORT IN CHEST Current Active Problems Chest pain (Acute) Condition: Stable - Instructions Referrals: Zoran Viramontes MD [Primary Care Provider] - - Home Medications Comprehensive Discharge Medication List: Ambulatory Orders Aspirin [ASA -] 81 mg PO DAILY 10/02/13 Amlodipine Besylate/Benazepril [Lotrel 10-20 mg Capsule] 1 cap PO DAILY Escitalopram Oxalate [Lexapro -] 10 mg PO DAILY 07/23/17 - Discharge Referral [facility]erred to [facility] Med P.C.: No
[2017-07-25 14:37] VITALS: BP 110/56; PULSE 55; TEMP 98.6
--- NOTE | 2017-07-25 19:58 | CONS ---
DATE OF CONSULTATION: 07/25/2017 Asked to evaluate this 80-year-old gentleman with atypical chest pain, possibly of GI origin. The patient has a past history of paroxysmal atrial fibrillation, hypertension, coronary artery disease, prostate cancer, and an abdominal aortic aneurysm. The patient was admitted with some mid-sternal chest discomfort which he believes began after eating a combination of mozzarella, salami, and some bread earlier. The discomfort has occurred in the past but not as significantly, and it is usually in the upper chest. It does not radiate and was not associated with any nausea or vomiting. The patient has been seen by Cardiology, and the discomfort was not felt to be due to a cardiac source. The patient does take Zantac at bedtime but also remains on a baby aspirin. He apparently has a small hiatal hernia on radiographic imaging. Review of a CAT scan from several months ago showed gallstones as well. The patient is currently asymptomatic. His laboratory tests include a normal CBC, and his chemistry panel is unremarkable as well including his liver chemistries, alkaline phosphatase, and lipase. PHYSICAL EXAMINATION: General: He is a well-developed, moderately-overweight gentleman. HEENT: [place] conjunctivae. No icterus. Respiratory: Clear lungs. Cardiovascular: Slightly irregular heart rate. Abdomen: Soft, flat, and nontender. Patient with atypical chest pain which may be of gastrointestinal origin. His differential diagnosis includes reflux/peptic disease and possibly gallbladder disease/colic. Currently asymptomatic. We will switch his antacid regimen to pantoprazole 40 mg p.o. daily and follow clinically. If symptoms recur, we will suggest an upper endoscopy. If otherwise stable, can discharge home. LINDA ENCARNACION M.D. [id number]
== END 2017-07-25 15:00 | disposition home or self-care (01) ==
LOC: FER 19:57 → FM/S 22:11
PROVIDERS: ADMIT Internal Medicine; ATTEND Nurse Practitioner Family
PROC: 3E033GC Introduction of Other Therapeutic Substance into Peripheral Vein, Percutaneous Approach (ICD-10-PCS; principal; 2017-07-23)
DX: R07.89 Other chest pain (principal); I10 Essential (primary) hypertension; I48.0 Paroxysmal atrial fibrillation; I25.10 Atherosclerotic heart disease of native coronary artery without angina pectoris; N40.0 Benign prostatic hyperplasia without lower urinary tract symptoms; M48.00 Spinal stenosis, site unspecified; K44.9 Diaphragmatic hernia without obstruction or gangrene; K21.9 Gastro-esophageal reflux disease without esophagitis; Z85.46 Personal history of malignant neoplasm of prostate; Z92.3 Personal history of irradiation; Z79.82 Long term (current) use of aspirin; Z87.442 Personal history of urinary calculi; Z87.891 Personal history of nicotine dependence; Z91.013 Allergy to seafood; Z86.79 Personal history of other diseases of the circulatory system
CPT/HCPCS: 36415; 71045-TC-FY; 80053; 81003; 81015; 82550; 83690; 84484; 85025; 85610; 87086; 93005; 96374; 99282-25; G0378

== ENCOUNTER 2018-01-20 15:08 | Emergency (ER) | payer OTHER, MEDICARE ==
[2018-01-20] MEDS ORDERED: SODIUM CHLORIDE 1,000 ML IV SCH ×2 (15:15→15:30)
[2018-01-20 15:32] VITALS: BP 139/80; PULSE 64; TEMP 97.8; BMI 31.3
[2018-01-20 15:48] LABS: PH,URINE 5.5 (4.5-8); URINE BILIRUBIN Negative (NEGATIVE); URINE COLOR Yellow; URINE GLUCOSE (UA) Negative (NEGATIVE); URINE KETONE Trace (NEGATIVE); URINE NITRITE Negative (NEGATIVE); URINE UROBILINOGEN 0.2 (0.2-1.0)
[2018-01-20 15:49] LABS: URINE APPEARANCE HAZY; URINE LEUK ESTERASE 1+ (NEGATIVE); URINE PROTEIN 2+ (NEGATIVE)
[2018-01-20 16:31] LABS: EPI CELLS FEW /HPF; URINE RBC 20-40 /hpf (0-3)
[2018-01-20] MEDS ORDERED: SULFAMETHOXAZOLE/TRIMETHOPRIM 800MG/160MG D.S. TABLET PO ONE (16:54)
[2018-01-20] MEDS ORDERED: SULFAMETHOXAZOLE/TRIMETHOPRIM 800MG/160MG D.S. TABLET ONE (17:05)
[2018-01-20] MEDS ORDERED: PHENAZOPYRIDINE HCL 100 MG TABLET (FP) PO ONE (17:06)
[2018-01-20] MEDS ORDERED: PHENAZOPYRIDINE HCL 100 MG TABLET (FP) ONE ×2 (17:06→17:09)
--- NOTE | 2018-01-20 17:07 | PDOC ---
History of Present Illness - General Chief Complaint: Urinary Problem Stated Complaint: BURNING ON URINATION SLIGHT BLOOD IN URINE Time Seen by Provider: 01/20/18 15:09 Past History - Past Medical History Allergies/Adverse Reactions: Allergies Allergy/AdvReac Type Severity Reaction Status Date / Time shellfish derived Allergy Unknown Verified 01/20/18 15:10 Home Medications: Ambulatory Orders Amiodarone HCl 200 mg PO DAILY 01/20/18 Amlodipine Besylate/Benazepril [Lotrel 10-20 mg Capsule] 1 cap PO DAILY Aspirin [Adult Aspirin] 81 mg PO DAILY 01/20/18 Escitalopram Oxalate [Lexapro -] 10 mg PO DAILY 01/20/18 Pantoprazole Sodium 40 mg PO DAILY 01/20/18 Sulfamethoxazole/Trimethoprim [Bactrim Ds -] 1 tab PO DAILY #30 tablet 01/20/18 Tamsulosin HCl [Flomax] 0.4 mg PO ONCE #14 cap.er.24h 01/20/18 Anemia: No Asthma: No Cancer: Yes (PROSTATE CANCER 08/26) Cardiac Disorders: Yes (A-FIB) CVA: No COPD: No CHF: No Dementia: No Diabetes: No GI Disorders: Yes (HIATAL HERNIA, ANEURSYM ,) Disorders: No HTN: Yes Hypercholesterolemia: No Kidney Stones: Yes Liver Disease: No Seizures: No Thyroid Disease: No Other medical history: SPINAL STENOSIS EPIDURAL INJECTIONS - Surgical History Abdominal Surgery: No Appendectomy: No Cardiac Surgery: No Cholecystectomy: No Lung Surgery: No Neurologic Surgery: No Orthopedic Surgery: No - Suicide/Smoking/Psychosocial Hx Smoking History: Former smoker Have you smoked in the past 12 months: No If you are a former smoker, when did you quit?: 1979 Information on smoking cessation initiated: No Hx Alcohol Use: No Drug/Substance Use Hx: No Substance Use Type: None Hx Substance Use Treatment: No *Physical Exam - Vital Signs Last Vital Signs Temp Pulse Resp BP Pulse Ox 97.8 F 64 18 139/80 96 01/20/18 15:09 01/20/18 15:09 01/20/18 15:09 01/20/18 15:09 01/20/18 15:09 ED Treatment Course - ADDITIONAL ORDERS Additional order review: Laboratory Results 01/20/18 15:30 Urine Color Yellow Urine Appearance Hazy Urine pH 5.5 Ur Specific [place] 1.020 Urine Protein 2+ H Urine Glucose (UA) Negative Urine Ketones Trace Urine Blood 3+ H Urine Nitrite Negative Urine Bilirubin Negative Urine Urobilinogen 0.2 Ur Leukocyte Esterase 1+ H Urine RBC 20-40 Urine WBC 10-20 Ur Epithelial Cells Few *DC/Admit/Observation/Transfer Diagnosis at time of Disposition: Urinary tract infection Qualifiers: Urinary tract infection type: acute cystitis Hematuria presence: with hematuria Qualified Code(s): N30.01 - Acute cystitis with hematuria - Discharge Dispostion Disposition: HOME Condition at time of disposition: Stable Decision to Admit order: No - Referrals Referrals: Crystal Fiore MD [Primary Care Provider] - - Patient Instructions Printed Discharge Instructions: DI for Urinary Tract Infection (UTI) Additional Instructions: Drink plenty of water Follow up with your Urologist as scheduled. Ask your doctor to call the laboratory for the results of urine culture - Post Discharge Activity
== END 2018-01-20 17:31 | disposition home or self-care (01) ==
LOC: FER 15:08
DX: N30.01 Acute cystitis with hematuria (principal); Z87.891 Personal history of nicotine dependence; I10 Essential (primary) hypertension; I48.91 Unspecified atrial fibrillation; Z85.46 Personal history of malignant neoplasm of prostate
CPT/HCPCS: 81003; 81015; 87086; 99282-25

== ENCOUNTER 2020-04-01 20:02 | Observation (INO) | payer OTHER, MEDICARE ==
[2020-04-01 20:40] LABS: BASO % 0.7 % (0-2.0); EOS % 1.9 % (0-4.5); HEMATOCRIT 42.4 % (35.4-49); HEMOGLOBIN 14.1 GM/dl (11.7-16.9); LYMPH % 31.3 % (8-40); MCH 34.2 pg (25.7-33.7); MCHC 33.2 g/dl (32.0-35.9); MEAN PLT VOLUME 8.5 fl (7.5-11.1); MONO % 11.8 % (3.8-10.2); NEUT % 54.3 % (42.8-82.8); PLATELET COUNT 254 K/MM3 (134-434); RBC 4.11 M/mm3 (4.00-5.60); RDW 12.9 % (11.9-15.9); WHITE BLOOD COUNT 4.2 K/mm3 (4.0-10.8)
[2020-04-01 20:52] LABS: BILIRUBIN,TOTAL 0.6 mg/dl (0.2-1); CALCIUM 8.7 mg/dl (8.5-10); CREATININE 0.9 mg/dl (0.55-1.3); POTASSIUM 4.3 mmol/L (3.5-5.1); TOT PROT 6.9 g/dl (6.4-8.2)
[2020-04-01 22:17] VITALS: BMI 31.1
[2020-04-02] MEDS ORDERED: amLODIPine BESYLATE 10 MG TABLET (FP) PO STA (12:56)
[2020-04-02] MEDS ORDERED: LISINOPRIL 20 MG TABLET PO STA (12:56)
[2020-04-02] MEDS ORDERED: ASPIRIN 81 MG CHEWABLE TABLETS PO STA (12:57)
[2020-04-02] MEDS ORDERED: AMIODARONE HCL 200 MG TABLET PO STA (12:57)
[2020-04-02 14:07] VITALS: BP 110/62; PULSE 58; TEMP 98.5
== END 2020-04-02 15:00 | disposition home or self-care (01) ==
LOC: FER 20:02 → INTOOBSV 21:39 → FM/S 21:39 → UNDOADMOB 21:39 → FM/S 04-02 07:46
PROVIDERS: ADMIT Internal Medicine; ATTEND Internal Medicine
DX: I48.0 Paroxysmal atrial fibrillation (principal); R07.9 Chest pain, unspecified; Z87.891 Personal history of nicotine dependence; I25.10 Atherosclerotic heart disease of native coronary artery without angina pectoris; I10 Essential (primary) hypertension; K21.9 Gastro-esophageal reflux disease without esophagitis; K46.9 Unspecified abdominal hernia without obstruction or gangrene; Z91.013 Allergy to seafood; E66.9 Obesity, unspecified; Z68.31 Body mass index [BMI] 31.0-31.9, adult
CPT/HCPCS: 36415; 71045-TC-FY; 80053; 82550; 84484; 85025; 93005; 99285-25; C9803; G0378; U0003

== ENCOUNTER 2020-10-22 21:16 | Emergency (ER) | payer OTHER, MEDICARE ==
[2020-10-22 21:21] VITALS: BP 166/83; PULSE 65; TEMP 98.6; BMI 32.3
== END 2020-10-22 22:01 | disposition home or self-care (01) ==
LOC: FER 21:16
DX: I10 Essential (primary) hypertension (principal)
CPT/HCPCS: 93005; 99283-25

== ENCOUNTER 2021-03-07 12:34 | Emergency (ER) | payer OTHER, MEDICARE ==
[2021-03-07 13:42] VITALS: BP 128/73; PULSE 73; TEMP 98.2; BMI 32.3
== END 2021-03-07 13:57 | disposition home or self-care (01) ==
LOC: FER 12:34
DX: B35.6 Tinea cruris (principal)
CPT/HCPCS: 99283-25

== ENCOUNTER → 2021-07-01 | Day surgery (SDC) | payer OTHER, MEDICARE | END | disposition home or self-care (01) | LOC: JRADIR 07:17 | PROVIDERS: ATTEND Internal Medicine | PROC: 0G9K3ZX Drainage of Thyroid Gland, Percutaneous Approach, Diagnostic (ICD-10-PCS; principal; 2021-07-01) | DX: E04.1 Nontoxic single thyroid nodule (principal) | CPT/HCPCS: 10005; 76942; 88173; 88305-TC ==

== ENCOUNTER 2023-04-20 14:26 | Emergency (ER) | payer OTHER, MEDICARE ==
[2023-04-20 14:53] VITALS: BP 128/76; PULSE 64; RESP 16; TEMP 98; BMI 31.3
[2023-04-20 16:02] LABS: ALBUMIN 4.1 g/dl (3.4-5.0); BILIRUBIN,TOTAL 0.5 mg/dl (0.2-1); CALCIUM 9.2 mg/dl (8.5-10.1); CREATININE 0.8 mg/dl (0.6-1.3); MAGNESIUM 2.1 mg/dL (1.8-2.4); POTASSIUM 4.8 mmol/L (3.5-5.1); TOT PROT 6.6 g/dl (6.4-8.2)
[2023-04-20 16:59] LABS: HEMATOCRIT 40.7 % (35.4-49); HEMOGLOBIN 13.9 G/dL (11.7-16.9); MCH 34.3 pg (25.7-33.7); MCHC 34.1 g/dl (32.0-35.9); MEAN CELL VOLUME 100.8 fl (80-96); MEAN PLT VOLUME 9.3 fl (7.5-11.1); PLATELET COUNT 211.9 10^3/uL (134-434); RBC 4.04 10^6/uL (4.00-5.60); RDW 14.3 % (11.9-15.9); WHITE BLOOD COUNT 4.3 10^3/uL (4.0-10.8)
[2023-04-20 19:09] LABS: PLATELET ESTIMATE ADEQUATE
== END 2023-04-20 18:06 | disposition home or self-care (01) ==
LOC: FER 14:26
DX: K56.41 Fecal impaction (principal); Z20.822 Contact with and (suspected) exposure to COVID-19
CPT/HCPCS: 0241U-QW; 36415; 74177-TC; 80053; 83690; 83735; 85027; 99285-25; Q9967